=== PATIENT | female | born 1965 | race Caucasian/White ===

== ENCOUNTER → 2021-12-29 15:44 | Outpatient (CLI) | payer OTHER, SELFPAY ==
[2021-12-29 16:39] LABS: Hematocrit 38.4 % (36-46); Hemoglobin 13.4 g/dL (12.0-16.0); Mean Corpuscular HGB Conc 34.9 % (30-36); Mean Corpuscular Volume 91.6 fL (80-100); Platelet Count 293 X10^3/uL (150-400); Red Blood Cell Count 4.19 X10^6/uL (4.0-5.2); Red Cell Distribution Width 12.4 % (11.6-14.8); White Blood Cell Count 9.7 X10^3/uL (4.5-11.0)
[2021-12-29 16:49] LABS: Alanine Aminotransferase 26 IU/L (<35); Albumin 4.7 g/dL (3.5-5.0); Albumin Globulin Ratio 1.7 (1.0-2.8); Alkaline Phosphatase 83 U/L (38-126); Aspartate Aminotransferase 28 IU/L (14-36); BUN Creatinine Ratio 21.9 (6-22); Bilirubin Total 0.2 mg/dL (0.2-1.3); Blood Urea Nitrogen 14 mg/dL (7-17); Calcium 9.2 mg/dL (8.4-10.2); Carbon Dioxide 30 mmol/L (22-32); Chloride 103 mmol/L (98-107); Estimated Glomerular Filt Rate > 60 mL/min (>60); Globulin 2.8 g/dL (1.7-4.1); Glucose 91 mg/dL (70-100); HEMOLYSIS < 15 (0-50); Potassium 4.4 mmol/L (3.4-5.1); Sodium 139 mmol/L (137-145); Total Protein 7.5 g/dL (6.3-8.2)
[2021-12-29 17:36] LABS: TSH w/ Reflex to FT4 2.11 uIU/mL (0.47-4.68)
== END ==
PROVIDERS: Family Provider Internal Medicine; PCP Internal Medicine; Referring Provider Internal Medicine; Visit Provider Internal Medicine
DX: R53.83 Other fatigue (principal)
CPT/HCPCS: 36415; 80053; 84443; 85027

== ENCOUNTER → 2022-09-15 10:55 | Outpatient (CLI) | payer OTHER, SELFPAY ==
[2022-09-15 13:23] LABS: TSH w/ Reflex to FT4 1.36 uIU/mL (0.47-4.68)
== END ==
PROVIDERS: Family Provider Internal Medicine; PCP Internal Medicine; Referring Provider Nurse Practitioner Family; Visit Provider Nurse Practitioner Family
DX: E04.1 Nontoxic single thyroid nodule (principal)
CPT/HCPCS: 36415; 84443

== ENCOUNTER → 2022-09-19 10:01 | Outpatient (CLI) | payer OTHER, SELFPAY ==
--- NOTE | 2022-09-19 10:02 | DI.US.S_ITS ---
PROCEDURE: US THYROID INDICATIONS: THYROID NODULE TECHNIQUE: Real-time scanning was performed of the thyroid gland, with image documentation. COMPARISON: None. FINDINGS: Right: Thyroid lobe measures 5.9 x 2.2 x 1.5 cm, and demonstrates multiple nodules Left: Thyroid lobe measures 6.3 x 1.8 x 2.7 cm, and demonstrates multiple nodules. Isthmus: 6 mm thick. Nodule number: 1 Location: Right inferior thyroid Size: 0.8 x 0.6 x 0.6 cm. Composition: Predominantly cystic Echogenicity: Hypoechoic and anechoic Shape: wider than tall. Margins: Lobular Echogenic foci: Punctate Total points: 8 ACR TI-RADS category: 5 Recommendations: Follow-up imaging Q year for 5 years. Nodule number: 2 Location: Right isthmus Size: 1.3 x 1.4 x 1.1 cm. Composition: Solid Echogenicity: Isoechoic Shape: wider than tall. Margins: Smooth Echogenic foci: None Total points: 3 ACR TI-RADS category: 3 Recommendations: Follow-up imaging at 1, 3, and 5 years. Nodule number: 3 Location: Left superior medial thyroid Size: 1.1 x 0.8 x 0.7 cm. Composition: Solid Echogenicity: Hypoechoic Shape: wider than tall. Margins: Small Echogenic foci: 0 Total points: 4 ACR TI-RADS category: 4 Recommendations: Follow-up imaging at 1, 2, 3, and 5 years. Nodule number: 4 Location: Left mid/posterior thyroid Size: 1.0 x 0.9 x 0.8 cm. Composition: Solid Echogenicity: Hyperechoic and isoechoic Shape: wider than tall. Margins: Smooth Echogenic foci: Punctate Total points: 7 ACR TI-RADS category: 5 Recommendations: Fine-needle aspiration Nodule number: 5 Location: Left inferior thyroid Size: 1.9 x 1.7 x 1.8 cm. Composition: Solid Echogenicity: Hypoechoic Shape: Taller than wide Margins: Smooth Echogenic foci: Punctate Total points: 10 ACR TI-RADS category: 5 Recommendations: Fine-needle aspiration IMPRESSION: 1. Bilateral thyroid nodules as described above. 2. Fine-needle aspiration recommended for nodules number 4 and 5 as above. 3. Follow-up imaging for remaining nodules recommended as above. Dictated by: Tim Zuleta M.D. on 09/19/2022 at 13:08 Transcribed by: [place] on 09/19/2022 at 13:13 Approved by: Tim Zuleta M.D. on 09/19/2022 at 15:41
== END ==
PROVIDERS: Family Provider Internal Medicine; PCP Internal Medicine; Referring Provider Nurse Practitioner Family; Visit Provider Nurse Practitioner Family
DX: E04.2 Nontoxic multinodular goiter (principal)
CPT/HCPCS: 76536

== ENCOUNTER → 2022-10-13 13:48 | Outpatient (CLI) | payer OTHER, SELFPAY ==
--- NOTE | 2022-10-13 | PATH_ITS ---
Note [facility] Accession Number: [id number] TESTS RESULT FLAG UNITS REF RANGE LAB Clinician Provided Cytology Information No. of containers..02 Previously Prepared Cytology Slide 35 Unknown Storage/container code(s) Source: [A] 01 INFERIOR LEFT THYROID NODULE #5 DIAGNOSIS: [A] 01 INFERIOR LEFT THYROID NODULE #5 SUSPICIOUS FOR MALIGNANCY. BETHESDA CATEGORY V. SUSPICIOUS FOR PAPILLARY CARCINOMA. SPECIMEN CONSISTS OF FOLLICULAR CELLS WITH NUCLEAR ENLARGEMENT, NUCLEAR PALLOR WITH GROOVES. INTRANUCLEAR PSEUDOINCLUSIONS ARE RARE. CYSTIC FEATURES ARE PRESENT. THIS PATTERN IS SUSPICIOUS FOR PAPILLARY CARCINOMA. Pathologist ICD10: 01 R89.6 Signed out by: Brittany Kemp MD, Pathologist NPI- [id number] Performed by: Kashif Sharma, Ada Accommodation Consultant ([facility]) Gross description: 30 CC, RED, CLEAR RECIEVED: IN CYTOLYT WITH 6 ALCOHOL FIXED AND 6 QUICK STAINED SLIDES ALSO 1 RNA VIAL WAS RECEIVED.VO /VDU 10/14/2022 06 Local FLAG LEGEND: L-Low Normal,H-High Normal,LL-Alert Low,HH-Alert High <-Panic Low,>-Panic High,A-Abnormal,AA-Critical Abnormal Performed at: 01 =[facility] Cyt[facility] [address], [place] [address] Cosmo Fraser MD, Performed at: [address] [place] [address] Cyt[address] [place] [address] [address], [place], [place] [id number] MD Cosmo Fraser MD Phone: [phone]
--- NOTE | 2022-10-13 13:50 | DI.US.S_ITS ---
PROCEDURE: US FINE NEEDLE ASPIRATION INDICATIONS: LEFT THYROID NODULE TECHNIQUE: The indications, alternatives, benefits, risks, and complications of the procedure were explained to the patient. Written informed consent was obtained and placed in the chart. The thyroid region was examined sonographically and a site was chosen for ultrasound guided percutaneous sampling. The skin was prepared and draped in the usual fashion, and anesthetized with 1% lidocaine infiltrated from the skin down to the thyroid gland. Multiple passes were then performed, with contents emptied into an appropriate pathology specimen container. A bandage was applied to the area of access at completion of the study. COMPARISON: [facility], US, US THYROID, 09/19/2022, 10:18. FINDINGS: Location(s) of lesion(s) sampled: Left inferior thyroid lobe, thyroid nodule 5 on the comparison thyroid ultrasound. [place]: 25 gauge hypodermic needles. Number of passes: 6 Medications: 1% lidocaine for local anaesthesia. Complications: None. Note: Thyroid nodule 4 was more posterior and superior to nodule 5. Unable to reach the nodule because of its posterior location. IMPRESSION: 1. Successful ultrasound-guided thyroid nodule fine needle aspiration biopsy of left inferior thyroid nodule (labeled as nodule 5 on ultrasound dated 09/19/2022), with cytology results pending. Please see chart below for management recommendations based on cytology results. 2. Unable to biopsy thyroid nodule #4. Recommend close imaging follow-up. Next follow-up ultrasound may be obtained in 6-12 months. [facility] ReportingRecommendationsNon-diagnostic* Repeat US-guided FNA, with on-site cytology evaluation if possible. * Repeated non-diagnostic nodules without high suspicion US features: close observation vs surgical consult. * Consider surgery if nodule has high suspicion US features, grows >20% in 2 dimensions on followup, or patient has clinical risk factors for malignancy. Benign* If nodule has high suspicion US features: repeat US and FNA within 12 months. * If nodule has low to intermediate suspicion US features: repeat US at 12-24 months. If nodule grows (20% increase in at least 2 dimensions, with minimal increase of 2 mm or >50% change in volume), or development of new suspicious US features, then repeat FNA or continue followup. * If nodule has very low suspicion US features: followup US at >24 months. Atypia of undetermined significance, follicular lesion of undetermined significanceRepeat FNA, molecular testing, followup US, or surgical consult.Follicular neoplasm, suspicious for follicular neoplasmSurgical consult; also consider molecular testing. Suspicious for malignancySurgical consult.MalignantSurgical consult. Dictated by: Rojelio Nguyen M.D. on 10/13/2022 at 15:31 Approved by: Rojelio Nguyen M.D. on 10/13/2022 at 15:38
== END ==
PROVIDERS: Family Provider Internal Medicine; PCP Internal Medicine; Referring Provider Internal Medicine; Visit Provider Internal Medicine
DX: E04.2 Nontoxic multinodular goiter (principal)
CPT/HCPCS: 10005

== ENCOUNTER 2023-03-10 09:51 | Day surgery (SDC) | payer OTHER, SELFPAY ==
--- NOTE | 2023-03-10 | PATH_ITS ---
[facility] Accession Number: [id number] No. of containers..02 Tissue . 01 Material submitted: . PART A: colon - TRANSVERSE COLON POLYP PART B: colon - ASCENDING COLON POLYP . 01 Diagnosis: A. Transverse Colon Polyp, Biopsy: Tubular adenoma. . B. Ascending Colon Polyp, Biopsy: Tubular adenoma. MRV 03/17/2023 1337 Local . 01 Electronically signed: . Charity England MD, Pathologist NPI- [id number] . 01 Gross description: . Part A: TRANSVERSE COLON POLYP: Received in formalin is 3 fragment(s) of aragon, soft tissue measuring 0.3 x 0.2 x 0.1 cm to 0.2 x 0.1 x 0.1 cm submitted entirely in 1 cassette(s) Part B: ASCENDING COLON POLYP: Received in formalin is 1 fragment(s) of aragon, soft tissue measuring 0.4 x 0.3 x 0.1 cm submitted entirely in 1 cassette(s) /AAY 03/14/2023 0029 Local . 01 Pathologist provided ICD-10: D12.3, D12.2 . 01 CPT . 982812, 896308 Specimen Comment: A courtesy copy of this report has been sent to Pathology Performed at: 01 [facility] Cyt[facility] [address] [place] [address] [address], [place], [place] [id number] MD Cosmo Fraser MD Phone: [phone]
[2023-03-10 10:21] VITALS: BP 140/84; PULSE 65; RESP 16; TEMP 36.4; O2SAT 99; BMI 27.9
[2023-03-10] MEDS: LACTATED RINGERS 1,000 ML 84 ML IV (10:37)
--- NOTE | 2023-03-10 12:12 | PM.HP.1 ---
History of Present Illness History of Present Illness Date Patient Seen: 03/10/23 Time Patient Seen: 12:12 Chief complaint: [facility] Narrative: 57-year-old female presents today for a colonoscopy. She has no family history of colon cancer and no history of polyps her last colonoscopy was about 10 years ago she thinks it might have been done at [facility]. She had onset of idiopathic adult onset seizure disorder around this time of her last colonoscopy 10 years ago. She has not had any concerning symptoms no bleeding from the low abdominal pain changes in bowel habits. She does have a ?skin flap? around her anus she was hoping to have it removed today. She also recently has been diagnosed thyroid cancer and status post thyroidectomy that was done in [place]. [facility] Medical History Achilles tendonitis Chicken pox (~1968) Essential hypertension Fibroids (~2015) Frequent UTI Hypothyroidism, postsurgical Overweight Papillary thyroid carcinoma Plantar fasciitis, right Primary osteoarthritis involving multiple joints Seizure disorder Social History household members: spouse Smoking Status: Never smoker alcohol intake: never Meds Home Medications and Allergies Home Medications Medication Instructions Recorded Confirmed Type oxcarbazepine 600 mg tablet 600 mg PO BID 12/29/21 03/10/23 History amlodipine 5 mg tablet 5 mg PO DAILY #90 tabs 01/12/23 03/10/23 Rx levothyroxine 150 mcg tablet 150 mcg PO DAILY 01/12/23 03/10/23 History Allergies Allergy/AdvReac Type Severity Reaction Status Date / Time ciprofloxacin AdvReac Severe achilles Verified 03/10/23 10:17 tendon pain Exam Vital Signs (past 8 hours): - 03/10/23 10:21 Temperature 97.6 F Pulse Rate 65 Respiratory Rate 16 Blood Pressure 140/84 Pulse Oximetry 99 Oxygen Delivery Method Room Air Oxygen Delivery Method Room Air Const General: cooperative, healthy appearing and comfortable [facility] Head: normal to inspection Eyes General: appearance normal, both eyes and all related structures Neck Neck: normal visual inspection Resp Effort & Inspection: normal respiratory effort and able to speak in complete sentences GI Palpation: soft and No tender Other: External rectal exam does reveal a few small external hemorrhoids Neuro General: patient alert, patient awake, patient oriented x3 and no focal motor deficits Assessment & Plan Assessment and plan (1) Screening for colon cancer: Status: Acute Assessment & Plan narrative: Presents today for screening colonoscopy I discussed the risks benefits and alternatives including but not limited to perforation of the colon and an incomplete exam she fully understands these risks and would like to proceed.
[2023-03-10 12:56] VITALS: BP 124/61; PULSE 70; RESP 20; TEMP 36.3; O2SAT 99
[2023-03-10 13:01] VITALS: BP 130/73; PULSE 64; RESP 14; O2SAT 100
[2023-03-10 13:06] VITALS: BP 133/47; PULSE 63; RESP 16; TEMP 36.3; O2SAT 100
[2023-03-10 13:11] VITALS: BP 135/80; PULSE 63; RESP 16; TEMP 36.3; O2SAT 100
--- NOTE | 2023-03-10 13:24 | P.OP.COLON_ITS ---
Operative Date/Time/Diagnoses Date of procedure: 03/10/23 Time of procedure: 13:24 Pre-op diagnosis: Colon cancer screening. No family history of colon cancer Post-op diagnosis: same Procedure & Clinicians Study performed: Colonoscopy and biopsy Same procedure as scheduled: Yes Indications: Screening for colon cancer, no family history Surgeon: Negar Hagen Procedure Notes Procedure in detail: Patient was taken to the endoscopy suite and placed in a left lateral decubitus position. A time-out was performed. With the help of anesthesiologist conscious sedation was induced and monitored throughout the case. A digital rectal exam was performed and there were no masses or strictures. There was a small right anterior external hemorrhoid. The colonoscope was then introduced into the anal canal and advanced through to the cecum. A photograph of the appendiceal orifice was obtained. The bowel prep was good Hartwick bowel prep score of 2. The scope was then withdrawn for a total of12 minutes and there was 1 small polyp in the ascending colon that was removed with the biopsy forceps and a slightly larger a still small polyp in the transverse colon that was removed with 2 bites of the biopsy forceps. The scope was then retroflexed and a photograph of the internal hemorrhoidal piles was obtained. There may have been 1 prominent out of 3. Findings: polyp(s) Specimen(s): other (1. Ascending colon polyp small 2. Transverse colon polyp approximately 5 mm size ) Complications: none Post-procedure Plan for aftercare: Depending on the pathology of the polyps a 7-10 year follow-up is likely. Regarding the hemorrhoid I have recommended that she make an appointment to see me in my office and discuss options for treatment and surgical intervention for hemorrhoids and we can make plans from there.
[2023-03-10 13:25] VITALS: BP 145/84; PULSE 63; RESP 16; TEMP 36.4; O2SAT 100
== END 2023-03-10 13:34 | disposition home or self-care (01) ==
PROVIDERS: Family Provider Internal Medicine; PCP Internal Medicine; Referring Provider Surgery; Visit Provider Surgery
PROC: 0DJD8ZZ Inspection of Lower Intestinal Tract, Via Natural or Artificial Opening Endoscopic (ICD-10-PCS; CPT 45378; principal; 2023-03-10 10:45)
DX: Z12.11 Encounter for screening for malignant neoplasm of colon (principal); D12.3 Benign neoplasm of transverse colon; D12.2 Benign neoplasm of ascending colon
CPT/HCPCS: 45380

== ENCOUNTER → 2023-05-16 13:27 | Outpatient (CLI) | payer OTHER, SELFPAY ==
--- NOTE | 2023-05-16 13:28 | DI.MG.S_ITS ---
BILATERAL DIGITAL DIAGNOSTIC MAMMOGRAM 3D/2D SHORT-TERM FOLLOW-UP: 05/16/2023 CLINICAL: 1 year follow up from prior exam. Comparison is made to exams dated: 05/12/2022 mammogram, 04/20/2021 mammogram, and 04/13/2021 mammogram - [facility]. Both breasts are heterogeneously dense, which may obscure small masses (category c / 51-75% glandular tissue). There is a stable benign oval low density focal asymmetry with an obscured and circumscribed margin in the left breast at 10 o'clock middle depth. This was not seen on the prior ultrasound. No other significant masses, calcifications, or other findings are seen in either breast. IMPRESSION: BENIGN There is no mammographic evidence of malignancy. Return to annual mammogram screening schedule is recommended. Based on the Tyrer Cuzick model (a risk assessment model) the patient's lifetime risk is 13.4% and her 10 year risk is 5.5%. According to the ACR, ACS, and NCCN guidelines, an annual breast MRI exam along with mammogram is recommended if the patient's lifetime risk is 20% or greater. This exam was interpreted at Station ID: [id number]. NOTE: For mammograms, a report in lay terms will be sent to the patient. Approximately 15% of breast malignancies will not be visualized mammographically. In the management of a palpable breast mass, a negative mammogram must not discourage biopsy of a clinically suspicious lesion. Electronically Signed By: Wang Cordova M.D. acr/:05/16/2023 14:01:29 letter sent: Normal Exam ACR BI-RADS Category 2: Benign Finding(s) 3342F
== END ==
PROVIDERS: Family Provider Internal Medicine; PCP Internal Medicine; Referring Provider Internal Medicine; Visit Provider Internal Medicine
DX: R92.8 Other abnormal and inconclusive findings on diagnostic imaging of breast (principal)
CPT/HCPCS: 77066; G0279

== ENCOUNTER → 2023-10-12 15:39 | Outpatient (CLI) | payer OTHER, SELFPAY ==
--- NOTE | 2023-10-12 15:40 | DI.US.S_ITS ---
PROCEDURE: US THYROID INDICATIONS: 1 YEAR POST THYROIDECTOMY EVALUATION TECHNIQUE: Real-time scanning was performed of the thyroid gland, with image documentation. COMPARISON: [facility], US, US THYROID, 09/19/2022, 10:18. FINDINGS: Status post total thyroidectomy. No suspicious soft tissue lesions identified within the thyroid fossa. No adenopathy seen. IMPRESSION: Status post total thyroidectomy. No evidence for soft tissue abnormalities within the thyroid fossa. No evidence for lymphadenopathy. Dictated by: Herman Dye M.D. on 10/13/2023 at 8:57 Approved by: Herman Dye M.D. on 10/13/2023 at 8:58
== END ==
LOC: US 15:40
PROVIDERS: Family Provider Internal Medicine; PCP Internal Medicine; Referring Provider Internal Medicine; Visit Provider Internal Medicine
DX: E89.0 Postprocedural hypothyroidism; Z85.850 Personal history of malignant neoplasm of thyroid
CPT/HCPCS: 76536

== ENCOUNTER → 2024-06-06 15:56 | Outpatient (CLI) | payer OTHER, SELFPAY ==
--- NOTE | 2024-06-06 15:57 | DI.MRI.S_ITS ---
PROCEDURE: MR ANKLE LT WO CON INDICATIONS: TENDONITIS,ACHILLES LEFT AND RIGHT TECHNIQUE: Noncontrast sagittal T1 spin echo and T2 fast spin echo with fat saturation, axial proton density fast spin echo and T2 fast spin echo with fat saturation, coronal T1 spin echo and T2 fast spin echo with fat saturation through the ankle/hindfoot. COMPARISON: [facility] [place], CR, XR ANKLE 1 OR 2 VIEWS BILATERAL, 05/07/2024, 15:57. FINDINGS: Image quality: Excellent Tendons: Mild tenosynovitis of the posterior tibialis and the flexor digitorum longus. The flexor hallucis longus is unremarkable. The extensor tendons, and the peroneal tendons are unremarkable. Marked tendinosis of the Achilles tendon, without tear. Ligaments: Mild sprain of the anterior tibiofibular ligament. The posterior tibiofibular ligament is intact. The anterior talofibular ligament is diminutive, likely secondary to prior sprain. The posterior talofibular ligament is intact. The calcaneofibular ligament is intact. Mild sprain of the deep portion deltoid ligament. Sinus tarsi: No fibrosis Plantar fascia: Mild thickening of the central cord, raising concern for plantar fasciitis. Muscles: Normal in signal Bones: Normal in signal. Small tibiotalar effusion. IMPRESSION: 1. Marked tendinosis of the Achilles tendon, without tear. 2. Mild sprain of the medial and lateral ankle ligament. 3. Mild plantar fasciitis. Dictated by: Albertina Hadley M.D. on 06/06/2024 at 16:45 Approved by: Albertina Hadley M.D. on 06/06/2024 at 17:00
--- NOTE | 2024-06-06 15:58 | DI.MRI.S_ITS ---
PROCEDURE: MR ANKLE RT WO CON INDICATIONS: TENDONITIS,ACHILLES LEFT AND RIGHT TECHNIQUE: Noncontrast sagittal T1 spin echo and T2 fast spin echo with fat saturation, axial proton density fast spin echo and T2 fast spin echo with fat saturation, coronal T1 spin echo and T2 fast spin echo with fat saturation through the ankle/hindfoot. COMPARISON: [facility] [place], CR, XR ANKLE 1 OR 2 VIEWS BILATERAL, 05/07/2024, 15:57. Located [facility], MR, MR ANKLE LT WO CON, 06/06/2024, 16:06. FINDINGS: Image quality: Excellent Tendons: Mild tenosynovitis of the posterior tibialis. The flexor digitorum longus and the flexor hallucis longus are unremarkable. The extensor tendons and the peroneal tendons are unremarkable. Marked tendinosis of the Achilles tendon, without tear. Ligaments: The anterior and the posterior tibiofibular ligament are intact. The anterior and the posterior talofibular ligament is intact. The calcaneofibular ligament is intact. The deep portion deltoid ligament is intact. Sinus tarsi: No fibrosis. Plantar fascia: Mild thickening of the central cord, raising concern for plantar fasciitis. Muscles: Normal in signal Bones: Normal in signal No significant tibiotalar effusion. IMPRESSION: 1. Marked tendinosis of the Achilles tendon, without tear. 2. Mild plantar fasciitis. Dictated by: Albertina Hadley M.D. on 06/06/2024 at 17:58 Approved by: Albertina Hadley M.D. on 06/06/2024 at 18:03
== END ==
PROVIDERS: Family Provider Internal Medicine; PCP Internal Medicine; Referring Provider Orthopaedic Surgery Foot and Ankle Surgery; Visit Provider Orthopaedic Surgery Foot and Ankle Surgery
DX: M76.62 Achilles tendinitis, left leg (principal); M76.61 Achilles tendinitis, right leg; M72.2 Plantar fascial fibromatosis; S93.432A Sprain of tibiofibular ligament of left ankle, initial encounter; S93.422A Sprain of deltoid ligament of left ankle, initial encounter
CPT/HCPCS: 73721

== ENCOUNTER → 2024-06-18 | Outpatient (CLI) | payer OTHER, SELFPAY ==
--- NOTE | 2024-06-18 15:24 | DI.MG.S_ITS ---
BILATERAL DIGITAL SCREENING MAMMOGRAM 3D/2D WITH CAD: 06/18/2024 CLINICAL: Routine screening. Comparison is made to exams dated: 05/16/2023 mammogram - [facility], 05/12/2022 mammogram, 04/13/2021 mammogram, 04/20/2021 mammogram, 07/24/2019 mammogram, and 07/19/2019 mammogram - [facility]. The breasts are heterogeneously dense, which may obscure small masses (category c / 51-75% glandular tissue). Current study was also evaluated with a Computer Aided Detection (CAD) system. There is a biopsy clip in the right breast. No significant masses, calcifications, or other findings are seen in either breast. There has been no significant interval change. IMPRESSION: BENIGN There is no mammographic evidence of malignancy. A 1 year screening mammogram is recommended. Based on the Tyrer Cuzick model (a risk assessment model) the patient's lifetime risk is 8.8% and her 10 year risk is 3.7%. According to the ACR, ACS, and NCCN guidelines, an annual breast MRI exam along with mammogram is recommended if the patient's lifetime risk is 20% or greater. This exam was interpreted at Station ID: [id number]. NOTE: For mammograms, a report in lay terms will be sent to the patient. Approximately 15% of breast malignancies will not be visualized mammographically. In the management of a palpable breast mass, a negative mammogram must not discourage biopsy of a clinically suspicious lesion. Electronically Signed By: Anna Orta M.D., Ph.D. dexter/betito:06/20/2024 20:25:31 letter sent: Normal Exam ACR BI-RADS Category 2: Benign
== END ==
LOC: MAMMO 15:24
PROVIDERS: Family Provider Internal Medicine; PCP Internal Medicine; Referring Provider Internal Medicine; Visit Provider Internal Medicine
DX: Z12.31 Encounter for screening mammogram for malignant neoplasm of breast (principal); R92.333 Mammographic heterogeneous density, bilateral breasts
CPT/HCPCS: 77063; 77067

== ENCOUNTER → 2024-12-17 08:44 | Outpatient (CLI) | payer BC, SELFPAY ==
[2024-12-17 09:40] LABS: Hematocrit 39.7 % (36-46); Hemoglobin 13.7 g/dL (12.0-16.0); Mean Corpuscular HGB Conc 34.6 % (30-36); Mean Corpuscular Hemoglobin 31.8 PG (26-34); Mean Corpuscular Volume 92.1 fL (80-100); Platelet Count 308 X10^3/uL (150-400); Red Blood Cell Count 4.31 X10^6/uL (4.0-5.2); Red Cell Distribution Width 11.9 % (11.6-14.8); White Blood Cell Count 5.9 X10^3/uL (4.5-11.0)
[2024-12-17 10:04] LABS: Alanine Aminotransferase 22 IU/L (<35); Albumin 4.9 g/dL (3.5-5.0); Albumin Globulin Ratio 2.1 (1.0-2.8); Alkaline Phosphatase 74 U/L (38-126); Aspartate Aminotransferase 26 IU/L (14-36); BUN Creatinine Ratio 23.5 (6-22); Bilirubin Total 0.7 mg/dL (0.2-1.3); Blood Urea Nitrogen 12 mg/dL (7-17); Calcium 9.5 mg/dL (8.4-10.2); Carbon Dioxide 26 mmol/L (22-32); Chloride 94 mmol/L (98-107); Cholesterol 198 mg/dL (140-199); Estimated Glomerular Filt Rate > 60 mL/min (>60); Globulin 2.3 g/dL (1.7-4.1); Glucose 91 mg/dL (70-99); HDL Cholesterol 48 mg/dL (40-60); HEMOLYSIS < 15 (0-50); LDL Cholesterol Calculated 126 mg/dL (<100); Potassium 4.6 mmol/L (3.4-5.1); Sodium 128 mmol/L (137-145); Total Protein 7.2 g/dL (6.3-8.2); Triglycerides 120 mg/dL (35-150)
[2024-12-17 10:30] LABS: TSH w/ Reflex to FT4 < 0.02 uIU/mL (0.47-4.68)
[2024-12-17 11:06] LABS: Free T4, Direct Thyroxine 1.67 ng/dL (0.78-2.19)
== END ==
PROVIDERS: Family Provider Internal Medicine; PCP Internal Medicine; Referring Provider Internal Medicine; Visit Provider Internal Medicine
DX: E89.0 Postprocedural hypothyroidism (principal); C73 Malignant neoplasm of thyroid gland; G40.909 Epilepsy, unspecified, not intractable, without status epilepticus
CPT/HCPCS: 36415; 80053; 80061; 80183; 84439; 84443; 85027

== ENCOUNTER → 2025-01-06 13:55 | Outpatient (CLI) | payer BC, SELFPAY ==
[2025-01-06 15:44] LABS: Free T4, Direct Thyroxine 1.11 ng/dL (0.78-2.19)
[2025-01-06 16:06] LABS: Thyroid Stimulating Hormone < 0.015 uIU/mL (0.47-4.68)
== END ==
PROVIDERS: Family Provider Internal Medicine; PCP Internal Medicine; Referring Provider Internal Medicine Endocrinology, Diabetes & Metabolism; Visit Provider Internal Medicine Endocrinology, Diabetes & Metabolism
DX: C73 Malignant neoplasm of thyroid gland (principal)
CPT/HCPCS: 36415; 84439; 84443

== ENCOUNTER → 2025-03-25 16:41 | Outpatient (CLI) | payer BC, SELFPAY ==
[2025-03-25 18:41] LABS: TSH w/ Reflex to FT4 < 0.02 uIU/mL (0.47-4.68)
[2025-03-25 19:24] LABS: Free T4, Direct Thyroxine 1.35 ng/dL (0.78-2.19)
== END ==
PROVIDERS: Family Provider Internal Medicine; PCP Internal Medicine; Referring Provider Internal Medicine Endocrinology, Diabetes & Metabolism; Visit Provider Internal Medicine Endocrinology, Diabetes & Metabolism
DX: C73 Malignant neoplasm of thyroid gland (principal)
CPT/HCPCS: 36415; 84439; 84443